=== PATIENT | male | born 1955 | race Caucasian/White ===

== ENCOUNTER 2017-09-02 03:27 | Inpatient (IN) | payer MEDICARE ==
[~2017-09-02] VITALS: Ht 175.3 cm; Wt 100.7 kg
[2017-09-02] MEDS ORDERED: OXYcodone IR 5MG TABLET ONE (03:48)
[2017-09-02] MEDS ORDERED: OXYcodone IR 5MG TABLET PO ONE (04:00)
[2017-09-02 04:22] LABS: BASOPHILS # (AUTO) 0.02 x10^3/uL (0-0.1); BASOPHILS % (AUTO) 0 % (0-1); EOSINOPHILS # (AUTO) 0.01 x10^3/uL (0-0.4); EOSINOPHILS % (AUTO) 0 % (1-7); LYMPHOCYTES # (AUTO) 0.83 x10^3/uL (1-3.4); LYMPHOCYTES % (AUTO) 9 % (22-44); MD NO; MEAN CORPUSCULAR HEMOGLOBIN 26.5 pg (27.5-34.5); MEAN CORPUSCULAR HGB CONC 33.5 g/dL (33.2-36.2); MEAN CORPUSCULAR VOLUME 79.1 fL (81-97); MEAN PLATELET VOLUME 8.2 fL (7.4-10.4); MONOCYTES # (AUTO) 0.98 x10^3/uL (0.2-0.8); MONOCYTES % (AUTO) 10 % (2-9); NEUTROPHILS % (AUTO) 81 % (42-75); PLATELET COUNT 308 x10^3/uL (130-400); RED BLOOD COUNT 4.32 x10^6/uL (4.38-5.82); RED CELL DISTRIBUTION WIDTH 15.1 % (9.4-14.8)
[2017-09-02 04:26] LABS: HCT (SEDRATE) 34.1 % (39.2-51.8)
[2017-09-02 04:29] LABS: ANION GAP 9 mmol/L (5-15); CALCIUM 8.4 mg/dL (8.5-10.1); CHLORIDE 100 mmol/L (98-107); CREATININE 0.89 mg/dL (0.7-1.3)
[2017-09-02] MEDS ORDERED: MORPHINE SULFATE 4 MG/ML, 1ML ONE ×2 (05:27→09:33)
[2017-09-02] MEDS ORDERED: MORPHINE SULFATE 4 MG/ML, 1ML IVPush ONE (05:30)
[2017-09-02] MEDS ORDERED: GLIM2TAB2 PO (06:01)
[2017-09-02] MEDS ORDERED: OMEP-110 PO (06:01)
[2017-09-02] MEDS ORDERED: PIOG30TA23 PO (06:01)
[2017-09-02] MEDS ORDERED: ASCO-96 PO (06:01)
[2017-09-02] MEDS ORDERED: LISI5TAB7 PO (06:01)
[2017-09-02] MEDS ORDERED: DIAZ10TA4 PO (06:01)
[2017-09-02] MEDS ORDERED: PRAV80TA2 PO (06:01)
[2017-09-02] MEDS ORDERED: INSU100V8 SQ (06:01)
[2017-09-02] MEDS ORDERED: INSU100C SQ-INSULIN (06:01)
[2017-09-02] MEDS ORDERED: VITA1CAP PO (06:01)
[2017-09-02] MEDS ORDERED: METF500T9 PO (06:01)
[2017-09-02] MEDS ORDERED: LIDOCAINE 1%, 20ML ONE ×2 (07:55→10:57)
[2017-09-02] MEDS ORDERED: GADOBUTROL 10 MMOL/10 ML PFS ONE (08:53)
[2017-09-02] MEDS ORDERED: morphine SULFATE 10 MG/ML, 1ML IVPush ONE (09:30)
[2017-09-02] MEDS ORDERED: GLUCAGON 1 MG IM PRN (10:30)
[2017-09-02] MEDS ORDERED: DEXTROSE 4 GM TAB.CHEW PO PRN (10:30)
[2017-09-02] MEDS ORDERED: KETOROLAC 30 MG/1 ML IVPush SCH (10:30)
[2017-09-02] MEDS: INSULIN GLARGINE 100 UNITS/ML, PEN SQ-INSULIN SCH ×2 (10:30→21:00)
[2017-09-02] MEDS ORDERED: DEXTROSE 50%, 50ML SYRINGE IVPush PRN (10:30)
[2017-09-02] MEDS: methylPREDNISolone SOD SUCC 125 MG/2 ML IVPush SCH ×2 (10:30→14:37)
[2017-09-02] MEDS: INSULIN LISPRO 100 UNITS/ML, PEN SQ-INSULIN SCH ×3 (11:00→21:42)
[2017-09-02 12:56] VITALS: BP 136/74
[2017-09-02] MEDS: ACETAMINOPHEN 500 MG TABLET PO SCH ×2 (14:45→22:00)
[2017-09-02 20:03] VITALS: BP 121/69
[2017-09-02] MEDS: SODIUM CHLORIDE FLUSH 10ML SYR IVF SCH (20:50)
[2017-09-02] MEDS: LISINOPRIL 5 MG TABLET PO SCH (20:51)
[2017-09-02] MEDS: PRAVASTATIN 40 MG TABLET PO SCH (20:51)
[2017-09-03 01:30] VITALS: BP 104/58
[2017-09-03] MEDS: INSULIN LISPRO 100 UNITS/ML, PEN SQ-INSULIN SCH ×4 (03:06→21:00)
[2017-09-03] MEDS: ACETAMINOPHEN 500 MG TABLET PO SCH ×3 (04:08→23:51)
[2017-09-03] MEDS ORDERED: FENTANYL PF 250 MCG/5ML ONE (06:08)
[2017-09-03] MEDS ORDERED: ROCURONIUM 10 MG/ML,10ML ONE (06:27)
[2017-09-03] MEDS ORDERED: SUCCINYLCHOLINE 20 MG/ML, 10ML ONE (06:27)
[2017-09-03] MEDS ORDERED: PROPOFOL 10 MG/ML, 20ML ONE (06:27)
[2017-09-03] MEDS ORDERED: METOCLOPRAMIDE 5 MG/ML, 2ML ONE (06:38)
[2017-09-03] MEDS ORDERED: ONDANSETRON 2MG/ML, 2ML ONE (06:39)
[2017-09-03] MEDS ORDERED: CEFAZOLIN 1,000 MG ONE ×2 (06:41)
[2017-09-03] MEDS ORDERED: BACITRACIN 50,000 UNIT ONE (06:45)
[2017-09-03] MEDS ORDERED: BACITRACIN 50,000 UNIT IRRIG ONE (06:51)
[2017-09-03] MEDS ORDERED: LABETALOL 5MG/ML, 20ML IV PRN (07:00)
[2017-09-03] MEDS ORDERED: PROMETHAZINE 12.5 MG SUPP PR PRN (07:00)
[2017-09-03] MEDS ORDERED: ACETAMINOPHEN 325 MG TABLET PO PRN (07:00)
[2017-09-03] MEDS ORDERED: ONDANSETRON 2MG/ML, 2ML IVPush PRN (07:00)
[2017-09-03] MEDS ORDERED: HYDROmorphone 1 MG/ML, 1ML IV PRN (07:00)
[2017-09-03] MEDS ORDERED: hydrALAzine 20 MG/ML, 1ML IV PRN (07:00)
[2017-09-03] MEDS ORDERED: OXYcodone 5 MG/5 ML ORAL.SOL UDC PO PRN (07:00)
[2017-09-03] MEDS ORDERED: morphine SULFATE 10 MG/ML, 1ML IV PRN (07:00)
[2017-09-03] MEDS: OMEPRAZOLE 20 MG CAPSULE.DR PO SCH (07:30)
[2017-09-03] MEDS ORDERED: OXYcodone 5 MG/5 ML ORAL.SOL UDC ONE (07:31)
[2017-09-03] MEDS ORDERED: ACETAMINOPHEN 650 MG/20.3 ML UDC ONE (07:31)
[2017-09-03] MEDS ORDERED: FENTANYL PF 100 MCG/2ML ONE (07:31)
[2017-09-03] MEDS: FENTANYL PF 100 MCG/2ML IV PRN ×2 (07:32→07:40)
[2017-09-03] MEDS ORDERED: morphine SULFATE 10 MG/ML, 1ML ONE (07:46)
[2017-09-03] MEDS ORDERED: morphine SULFATE 10 MG/ML, 1ML IVPush PRN (08:30)
[2017-09-03 08:41] VITALS: BP 126/64
[2017-09-03] MEDS: ASCORBIC ACID 500 MG TABLET PO SCH (09:00)
[2017-09-03] MEDS: SODIUM CHLORIDE FLUSH 10ML SYR IVF SCH ×2 (09:00→20:25)
[2017-09-03] MEDS: OXYcodone IR 5MG TABLET PO PRN (11:51)
[2017-09-03 14:40] VITALS: BP 125/61
[2017-09-03] MEDS ORDERED: INSULIN LISPRO 100 UNITS/ML, PEN SQ-INSULIN ONE (18:00)
[2017-09-03 18:31] VITALS: BP 101/58
[2017-09-03] MEDS: PRAVASTATIN 40 MG TABLET PO SCH (20:25)
[2017-09-03] MEDS: LISINOPRIL 5 MG TABLET PO SCH (20:25)
[2017-09-03] MEDS: INSULIN GLARGINE 100 UNITS/ML, PEN SQ-INSULIN SCH (21:39)
[2017-09-03] MEDS: DIAZEPAM 10 MG TABLET PO PRN (23:56)
[2017-09-04 00:07] VITALS: BP 98/59
[2017-09-04 07:19] VITALS: BP 102/55
[2017-09-04] MEDS: SODIUM CHLORIDE FLUSH 10ML SYR IVF SCH ×2 (09:46→20:41)
[2017-09-04] MEDS: ACETAMINOPHEN 500 MG TABLET PO SCH ×2 (09:46→16:00)
[2017-09-04] MEDS: OMEPRAZOLE 20 MG CAPSULE.DR PO SCH (09:46)
[2017-09-04] MEDS: ASCORBIC ACID 500 MG TABLET PO SCH (09:46)
[2017-09-04] MEDS: INSULIN LISPRO 100 UNITS/ML, PEN SQ-INSULIN SCH ×4 (09:50→20:39)
[2017-09-04 14:30] VITALS: BP 116/67
[2017-09-04 18:28] VITALS: BP 126/71
[2017-09-04] MEDS: LISINOPRIL 5 MG TABLET PO SCH (20:36)
[2017-09-04] MEDS: PRAVASTATIN 40 MG TABLET PO SCH (20:36)
[2017-09-04] MEDS: INSULIN GLARGINE 100 UNITS/ML, PEN SQ-INSULIN SCH (20:40)
[2017-09-04] MEDS: DIAZEPAM 10 MG TABLET PO PRN (23:12)
[2017-09-05] MEDS: ACETAMINOPHEN 500 MG TABLET PO SCH ×4 (00:18→23:53)
[2017-09-05 00:33] VITALS: BP 145/77
[2017-09-05 05:48] LABS: BASOPHILS # (AUTO) 0.05 x10^3/uL (0-0.1); BASOPHILS % (AUTO) 1 % (0-1); EOSINOPHILS # (AUTO) 0.08 x10^3/uL (0-0.4); EOSINOPHILS % (AUTO) 1 % (1-7); LYMPHOCYTES # (AUTO) 1.65 x10^3/uL (1-3.4); LYMPHOCYTES % (AUTO) 25 % (22-44); MD NO; MEAN CORPUSCULAR HEMOGLOBIN 26.2 pg (27.5-34.5); MEAN CORPUSCULAR HGB CONC 33.2 g/dL (33.2-36.2); MEAN CORPUSCULAR VOLUME 78.8 fL (81-97); MEAN PLATELET VOLUME 7.9 fL (7.4-10.4); MONOCYTES % (AUTO) 9 % (2-9); NEUTROPHILS # (AUTO) 4.15 x10^3/uL (1.8-6.8); NEUTROPHILS % (AUTO) 64 % (42-75); PLATELET COUNT 359 x10^3/uL (130-400); RED BLOOD COUNT 3.77 x10^6/uL (4.38-5.82); RED CELL DISTRIBUTION WIDTH 15.6 % (9.4-14.8)
[2017-09-05 06:00] LABS: CHLORIDE 103 mmol/L (98-107)
[2017-09-05 06:10] LABS: ANION GAP 7 mmol/L (5-15); CALCIUM 8.5 mg/dL (8.5-10.1); CREATININE 0.85 mg/dL (0.7-1.3)
[2017-09-05] MEDS: ASCORBIC ACID 500 MG TABLET PO SCH (08:51)
[2017-09-05] MEDS: OMEPRAZOLE 20 MG CAPSULE.DR PO SCH (08:51)
[2017-09-05] MEDS: SODIUM CHLORIDE FLUSH 10ML SYR IVF SCH ×2 (08:52→20:32)
[2017-09-05] MEDS: INSULIN LISPRO 100 UNITS/ML, PEN SQ-INSULIN SCH ×4 (08:52→20:32)
[2017-09-05 09:47] VITALS: BP 144/75
[2017-09-05] MEDS: CEFAZOLIN PMX 1GM/50ML 50 ML IV SCH ×2 (14:35→21:36)
[2017-09-05 14:38] VITALS: BP 126/67
[2017-09-05 19:20] VITALS: BP 137/75
[2017-09-05] MEDS: PRAVASTATIN 40 MG TABLET PO SCH (20:29)
[2017-09-05] MEDS: LISINOPRIL 5 MG TABLET PO SCH (20:30)
[2017-09-05] MEDS: INSULIN GLARGINE 100 UNITS/ML, PEN SQ-INSULIN SCH (20:31)
[2017-09-06 00:22] VITALS: BP 129/84
[2017-09-06] MEDS: CEFAZOLIN PMX 1GM/50ML 50 ML IV SCH ×3 (05:37→21:39)
[2017-09-06 06:55] VITALS: BP 151/72
[2017-09-06] MEDS: ASCORBIC ACID 500 MG TABLET PO SCH (07:43)
[2017-09-06] MEDS: OMEPRAZOLE 20 MG CAPSULE.DR PO SCH (07:44)
[2017-09-06] MEDS: SODIUM CHLORIDE FLUSH 10ML SYR IVF SCH ×2 (07:44→19:52)
[2017-09-06] MEDS: ACETAMINOPHEN 500 MG TABLET PO SCH ×3 (07:44→21:39)
[2017-09-06] MEDS: INSULIN LISPRO 100 UNITS/ML, PEN SQ-INSULIN SCH ×4 (07:44→19:51)
[2017-09-06 14:00] VITALS: BP 100/63
[2017-09-06] MEDS: INSULIN GLARGINE 100 UNITS/ML, PEN SQ-INSULIN SCH (19:52)
[2017-09-06] MEDS: LISINOPRIL 5 MG TABLET PO SCH (19:53)
[2017-09-06] MEDS: PRAVASTATIN 40 MG TABLET PO SCH (19:53)
[2017-09-06 20:10] VITALS: BP 124/67
[2017-09-07 00:59] VITALS: BP 138/76
[2017-09-07] MEDS: CEFAZOLIN PMX 1GM/50ML 50 ML IV SCH ×3 (05:30→21:27)
[2017-09-07 07:33] VITALS: BP 136/67
[2017-09-07] MEDS: INSULIN LISPRO 100 UNITS/ML, PEN SQ-INSULIN SCH ×4 (08:08→21:28)
[2017-09-07] MEDS: OMEPRAZOLE 20 MG CAPSULE.DR PO SCH (08:08)
[2017-09-07] MEDS: ACETAMINOPHEN 500 MG TABLET PO SCH ×2 (08:08→17:13)
[2017-09-07] MEDS: ASCORBIC ACID 500 MG TABLET PO SCH (08:08)
[2017-09-07] MEDS: SODIUM CHLORIDE FLUSH 10ML SYR IVF SCH ×2 (08:08→21:26)
[2017-09-07 13:30] VITALS: BP 138/80
[2017-09-07 19:22] VITALS: BP 138/78
[2017-09-07] MEDS: PRAVASTATIN 40 MG TABLET PO SCH (21:25)
[2017-09-07] MEDS: OXYcodone IR 5MG TABLET PO PRN (21:26)
[2017-09-07] MEDS: LISINOPRIL 5 MG TABLET PO SCH (21:26)
[2017-09-07] MEDS: INSULIN GLARGINE 100 UNITS/ML, PEN SQ-INSULIN SCH (21:29)
[2017-09-08] MEDS: ACETAMINOPHEN 500 MG TABLET PO SCH ×3 (01:00→08:15)
[2017-09-08 01:15] VITALS: BP 110/66
[2017-09-08] MEDS: CEFAZOLIN PMX 1GM/50ML 50 ML IV SCH ×2 (05:48→13:20)
[2017-09-08 06:45] VITALS: BP 108/64
[2017-09-08] MEDS ORDERED: IBUP-1223 PO (07:33)
[2017-09-08] MEDS ORDERED: ACET500T71 PO (07:33)
[2017-09-08] MEDS: INSULIN LISPRO 100 UNITS/ML, PEN SQ-INSULIN SCH ×2 (08:14→13:21)
[2017-09-08] MEDS: ASCORBIC ACID 500 MG TABLET PO SCH (08:14)
[2017-09-08] MEDS: OMEPRAZOLE 20 MG CAPSULE.DR PO SCH (08:15)
[2017-09-08] MEDS: SODIUM CHLORIDE FLUSH 10ML SYR IVF SCH (08:15)
[2017-09-08 12:15] VITALS: BP 134/69
[2017-09-08] MEDS ORDERED: INSU100C SQ-INSULIN (14:02)
[2017-09-08] MEDS ORDERED: INSU100V8 SQ (14:02)
== END 2017-09-08 15:00 | disposition home or self-care (01) | DRG 481 ==
LOC: ED 07:30 → EDIP 09:34 → 3NE 10:48
PROVIDERS: ADMIT Internal Medicine; ATTEND Family Medicine
PROC: 0S9B3ZX Drainage of Left Hip Joint, Percutaneous Approach, Diagnostic (ICD-10-PCS; 2017-09-02)
PROC: BQ011ZZ Plain Radiography of Left Hip using Low Osmolar Contrast (ICD-10-PCS; 2017-09-02)
PROC: 0SBB0ZZ Excision of Left Hip Joint, Open Approach (ICD-10-PCS; principal; 2017-09-03 06:30)
DX: M00.9 Pyogenic arthritis, unspecified (principal); R71.0 Precipitous drop in hematocrit; E11.9 Type 2 diabetes mellitus without complications; E66.9 Obesity, unspecified; G47.00 Insomnia, unspecified; Z68.32 Body mass index [BMI] 32.0-32.9, adult; I10 Essential (primary) hypertension; M16.12 Unilateral primary osteoarthritis, left hip; Z88.0 Allergy status to penicillin; K21.9 Gastro-esophageal reflux disease without esophagitis; Z80.1 Family history of malignant neoplasm of trachea, bronchus and lung; Z80.42 Family history of malignant neoplasm of prostate; Z83.3 Family history of diabetes mellitus
CPT/HCPCS: 20610; 20611; 36415; 80048; 82945; 82947; 82962; 84157; 84560; 85025; 85651; 86140; 87070; 87075; 87205; 89051; 89060; 96374; 96376; A9585; J0690; J1885; J2405; J2704; J3010; J3490; J0330; J1815; J2270; J2765; J2930